=== PATIENT | male | born 1950 | race Caucasian/White ===

== ENCOUNTER 2018-03-16 08:13 | Day surgery (SDC) | payer MEDICARE, OTHER ==
[~2018-03-16] VITALS: Ht 195.6 cm; Wt 127.0 kg
[~2018-03-16 08:13] MED LIST: FENO48TA; MELO7.5T; PRD20T PO; SIMV40TA4 PO; SIMVASTIN
[2018-03-16] MEDS ORDERED: LACTATED RINGERS 1,000 ML IV ONE (08:25)
[2018-03-16] MEDS ORDERED: LACTATED RINGERS 1,000 ML IV STA (08:26)
[2018-03-16 08:45] VITALS: BP 123/104
[2018-03-16] MEDS ORDERED: MIDAZOLAM 2 MG/2 ML (VERSED) VIAL ONE (08:48)
[2018-03-16] MEDS ORDERED: PROPOFOL INJECTION 50 ML IV ONE (08:48)
[2018-03-16] MEDS ORDERED: ceFAZolin 2 GM IV Premixed 50 ML ONE (08:48)
--- NOTE | 2018-03-16 09:19 | Progress Note-Pre Operative ---
Pre-Operative Progress Note H&P Reviewed The H&P was reviewed, patient examined and no changes noted. Date Seen by Provider: March 16, 2018 Time Seen by Provider: 09:18 Date H&P Reviewed: March 16, 2018 Time H&P Reviewed: 09:18 Pre-Operative Diagnosis: screening colonoscopy, family history colon cancer COLEEN DUFFY DO March 16, 2018 09:18
--- NOTE | 2018-03-16 09:57 | Progress Note-Post Operative ---
Post-Operative Progess Note Surgeon (s)/Seconds Handler (s) Surgeon COLEEN DUFFY DO Seconds Handler: na Pre-Operative Diagnosis screening colonoscopy, family history colon cancer Post-Operative Diagnosis descending colon polyp, diverticulosis Procedure & Operative Findings Date of Procedure 03/16/18 Procedure Performed/Findings colonoscopy with hot bx polypectomy Anesthesia Type per segment assembler Estimated Blood Loss Estimated blood loss (mL): none Specimens/Packing Specimens Removed descending colon polyp COLEEN DUFFY DO March 16, 2018 09:57
--- NOTE | 2018-03-16 09:58 | Discharge Inst-Simple/Standard ---
Discharge Inst-Standard Patient Instructions/Follow Up Plan of Care/Instructions/FU: 2 weeks Toni Activity as Tolerated: Yes Discharge Diet: Regular Diet (high fiber) COLEEN DUFFY DO March 16, 2018 09:58
[2018-03-16 10:05] VITALS: BP 94/62
--- NOTE | 2018-03-16 10:15 | Anesthesia-General Post-Op ---
MAC Patient Condition Mental Status/LOC: Same as Preop Cardiovascular: Satisfactory Nausea/Vomiting: Absent Respiratory: Satisfactory Pain: Controlled Complications: Absent Post Op Complications Complications None Follow Up Care/Instructions Patient Instructions None needed. Anesthesiology Discharge Order Discharge Order Patient is doing well, no complaints, stable vital signs, no apparent adverse anesthesia problems. No complications reported per nursing. CHAO FORD CRNA March 16, 2018 10:15
[2018-03-16 10:35] VITALS: BP 128/83
[2018-03-16 11:50] VITALS: BP 128/83
--- NOTE | 2018-03-16 18:58 | OPERATIVE REPORT ---
DATE OF SERVICE: 03/16/2018 PREOPERATIVE DIAGNOSES: Screening colonoscopy, family history of colon cancer. POSTOPERATIVE DIAGNOSES: Descending colon polyp, diverticulosis. PROCEDURE: Colonoscopy with hot biopsy polypectomy. SURGEON: Coleen Muñoz DO ANESTHESIA: Per AIR TUCKER. ESTIMATED BLOOD LOSS: None. COMPLICATIONS: None. INDICATIONS: The patient is a 67-year-old male due for screening colonoscopy. He understands risks and benefits of procedure and wished to proceed with procedure. Consent was signed in the chart. DESCRIPTION OF PROCEDURE: The patient was taken to the endoscopy suite, placed in left lateral recumbent position. Timeout was performed. Digital rectal exam was performed. There were no palpable polyp, mass or ulcerations. The scope was inserted into the rectum and advanced all the way to the cecum with minimal difficulty. Prep was adequate with irrigation and suction. Scope was then slowly retracted back. There are no polyps, mass or ulceration noted to the cecum, ascending and transverse colon. A small polyp was in the descending colon, which hot biopsy polypectomy was performed. Scope was continued to be slowly retracted back through the sigmoid colon, which had diverticulosis but no polyps, masses or ulcerations. Once in the rectum, scope was also retroflexed noting no other pathology. Scope was then returned to its normal position, slowly withdrawn until completely removed, noting no other pathology. The patient tolerated procedure well without any complications, the patient was taken to the recovery room in stable condition. RECOMMENDATIONS: The patient was recommended high fiber diet. He will need repeat colonoscopy in 5 years. If he has any problems prior to that should be reevaluated at that time. The patient will follow up in two weeks to discuss pathology. Job ID: [id number] DocumentID: [id number] Dictated Date: 03/16/2018 10:00:37 Repair Clerk Date: 03/16/2018 18:19:25 Dictated By: COLEEN MUÑOZ DO
== END 2018-03-16 11:50 | disposition home or self-care (01) ==
LOC: ENDO 08:13
PROVIDERS: ATTEND Surgery
DX: Z12.11 Encounter for screening for malignant neoplasm of colon (principal); D12.4 Benign neoplasm of descending colon; K57.30 Diverticulosis of large intestine without perforation or abscess without bleeding; Z80.0 Family history of malignant neoplasm of digestive organs; E78.00 Pure hypercholesterolemia, unspecified; Z79.899 Other long term (current) drug therapy; Z96.653 Presence of artificial knee joint, bilateral
CPT/HCPCS: 88305; 93005

== ENCOUNTER → 2020-05-01 | Outpatient (CLI) | payer MEDICARE, OTHER ==
[~2020-05-01] MED LIST changes: +SIMV40TA25 PO; -SIMV40TA4 PO
--- NOTE | 2020-05-01 10:55 | Diagnostic Imaging Report ---
INDICATION: Hepatomegaly Ultrasound of the liver and right upper quadrant was performed in the routine fashion. I do not have previous studies for comparison. The liver shows multiple cysts, the largest in the left lobe measured 4.5 x 4.9 x 3.9 cm. Portal vein is patent. Gallbladder shows a few stones but no wall thickening. Common duct measured 4.5 mm. Pancreas is obscured by overlying gas. Right kidney measured 11.9 cm in length and appeared normal. There is no ascites. IMPRESSION: Multiple hepatic cysts are present. There is no focal mass lesion. There are a few small gallstones in the gallbladder, without gallbladder wall thickening or biliary dilatation. Dictated by: Dictated on workstation # [id number]
== END ==
LOC: RAD 07:14
DX: K76.89 Other specified diseases of liver (principal); K80.20 Calculus of gallbladder without cholecystitis without obstruction; R16.0 Hepatomegaly, not elsewhere classified
CPT/HCPCS: 76705

== ENCOUNTER 2021-01-25 12:01 | Outpatient (CLI) | payer MEDICARE, OTHER ==
[~2021-01-25] VITALS: Ht 195.6 cm; Wt 124.1 kg
[2021-01-25 12:00] VITALS: BP 121/82
[2021-01-25] MEDS ORDERED: diphenhydrAMINE 50 MG/ML INJ (BENADRYL) IV PRN (12:15)
[2021-01-25] MEDS ORDERED: BAMLANIVIMAB (NON FORM) 700 MG in NS (IVPB) 100 ML IV ONE (12:15)
[2021-01-25] MEDS ORDERED: EPINEPHrine INJECTION 1 MG/ML AMP IM PRN (12:15)
[2021-01-25 13:15] VITALS: BP 124/78
== END 2021-01-25 13:45 | disposition home or self-care (01) ==
LOC: INFUSION 12:01
PROVIDERS: ATTEND Family Medicine
DX: Z23 Encounter for immunization (principal); U07.1 COVID-19